=== PATIENT | male | born 1945 | race Caucasian/White ===

== ENCOUNTER 2016-07-22 09:51 | Outpatient (CLI) | payer MEDICARE ==
[2016-07-22 12:24] LABS: #Basophils 0.1 thou/uL (0.0-0.2); #Eosinphils 0.1 thou/uL (0.0-0.7); #Lymphocytes 1.1 thou/uL (1.20-3.40); #Monocytes 0.8 thou/uL (0.11-0.59); #Neutrophils 3.4 thou/uL (1.40-6.50); %Basophils 1.8 % (0.0-1.0); %Eosinophils 2.5 % (0.0-10.0); %Lymphocytes 19.6 % (21.0-51.0); %Monocytes 14.8 % (0.0-10.0); Hematocrit 39.2 % (42.0-52.0); Mean Platelet Volume 5.7 fL (7.4-10.4); Red Blood Cell (RBC) Count 4.02 mill/uL (4.70-6.10); White Blood Cell (WBC) Count 5.5 thou/uL (4.8-10.8)
[2016-07-22 12:53] LABS: ALT (SGPT) 16 U/L (0-55); AST (SGOT) 19 U/L (5-34); Alkaline Phosphatase 54 U/L (40-150); Anion Gap 14 mmol/L (10-20); BUN (Urea Nitrogen) 9 mg/dL (8.4-25.7); Bilirubin, Direct 0.2 mg/dL (0.1-0.3); Bilirubin, Total 0.4 mg/dL (0.2-1.2); Calc. Creatinine Clearance 0 mL/min (70-130); Calcium 8.7 mg/dL (7.8-10.44); Carbon Dioxide 24 mmol/L (23-31); Chloride 109 mmol/L (98-107); Estimated GFR-MDRD 83; LDL Cholesterol, Calculated 22 mg/dL; Protein, Total 6.7 g/dL (5.8-8.1)
[2016-07-22 14:43] LABS: Hemoglobin A1c 6.9 % (4.0-6.0)
== END 2016-07-22 09:52 | disposition home or self-care (01) ==
LOC: NAVSJIPCSP 09:51
PROVIDERS: ATTEND Family Medicine
DX: E03.9 Hypothyroidism, unspecified (principal); E11.9 Type 2 diabetes mellitus without complications; I10 Essential (primary) hypertension; Z79.899 Other long term (current) drug therapy
CPT/HCPCS: 36415; 80048; 80061; 80076; 83036; 84443; 85025

== ENCOUNTER 2016-08-25 04:55 | Emergency (ER) | payer MEDICARE ==
[2016-08-25 05:34] LABS: #Basophils 0.1 thou/uL (0.0-0.2); #Eosinphils 0.2 thou/uL (0.0-0.7); #Lymphocytes 0.9 thou/uL (1.20-3.40); #Monocytes 0.8 thou/uL (0.11-0.59); #Neutrophils 3.1 thou/uL (1.40-6.50); %Basophils 2.5 % (0.0-1.0); %Eosinophils 3.3 % (0.0-10.0); %Lymphocytes 18.3 % (21.0-51.0); %Monocytes 14.7 % (0.0-10.0); Hematocrit 37.5 % (42.0-52.0); Mean Platelet Volume 5.9 fL (7.4-10.4); Red Blood Cell (RBC) Count 4.01 mill/uL (4.70-6.10); White Blood Cell (WBC) Count 5.1 thou/uL (4.8-10.8)
[2016-08-25 05:46] LABS: ALT (SGPT) 18 U/L (0-55); AST (SGOT) 29 U/L (5-34); Alkaline Phosphatase 53 U/L (40-150); Anion Gap 14 mmol/L (10-20); BUN (Urea Nitrogen) 13 mg/dL (8.4-25.7); Bilirubin, Total 0.3 mg/dL (0.2-1.2); CK (CPK) 99 U/L (30-200); Calc. Creatinine Clearance 0 mL/min (70-130); Calcium 8.9 mg/dL (7.8-10.44); Carbon Dioxide 24 mmol/L (23-31); Chloride 108 mmol/L (98-107); Estimated GFR-MDRD 80; Lipase 22 U/L (8-78); Protein, Total 6.9 g/dL (5.8-8.1)
[2016-08-25 05:47] LABS: Troponin I Less than 0.010 ng/mL (< 0.028)
--- NOTE | 2016-08-25 09:39 | RAD ---
FRONTAL VIEW CHEST: Date: 08/25/16 COMPARISON: 09/12/15. CLINICAL HISTORY: New onset chest pain. FINDINGS: There remains enlargement of the cardiac silhouette. No new consolidation, effusion, or pneumothorax . Mild prominence of the pulmonary vasculature with interstitial prominence present bilaterally. IMPRESSION: 1. Stable chest. 2. Findings which suggest a mild component of fluid overload. Correlate clinically. POS: [facility]
[2016-08-25 11:36] LABS: Troponin I Less than 0.010 ng/mL (< 0.028)
== END 2016-08-25 13:50 | disposition short-term general hospital (02) ==
LOC: NAV ERS 04:55
DX: R07.2 Precordial pain (principal); Z79.899 Other long term (current) drug therapy; E11.9 Type 2 diabetes mellitus without complications; Z87.891 Personal history of nicotine dependence
CPT/HCPCS: 71010; 80053; 82553; 83690; 84484; 85025; 93005; 94760

== ENCOUNTER 2016-11-19 09:21 | Outpatient (CLI) | payer MEDICARE ==
[2016-11-19 14:26] LABS: ALT (SGPT) 15 U/L (8-55); AST (SGOT) 20 U/L (5-34); Alkaline Phosphatase 46 U/L (40-150); Anion Gap 17 mmol/L (10-20); BUN (Urea Nitrogen) 18 mg/dL (8.4-25.7); Bilirubin, Direct 0.2 mg/dL (0.1-0.3); Bilirubin, Total 0.4 mg/dL (0.2-1.2); Calc. Creatinine Clearance 0 mL/min (70-130); Calcium 9.3 mg/dL (7.8-10.44); Carbon Dioxide 26 mmol/L (23-31); Cardiac Risk 3.1 (Less than 4.5); Chloride 106 mmol/L (98-107); Cholesterol 86 mg/dL (< 200 Desired); Estimated GFR-MDRD 72; Glucose 60 mg/dL (80-115); HDL Cholesterol 28 mg/dL (>60 Neg Risk); LDL Cholesterol, Calculated 29 mg/dL; Potassium 5.2 mmol/L (3.5-5.1); Protein, Total 6.4 g/dL (5.8-8.1); Sodium 144 mmol/L (136-145); Triglycerides 146 mg/dL (Less than 150)
[2016-11-19 14:35] LABS: Anisocytosis SLIGHT = 6-15 cells (100X) (0-5/hpf); Eosinophils 1 % (0-10); Hemoglobin 11.7 g/dL (14.0-18.0); Lymphocytes 29 % (21-51); MDiff Complete? YES; Mean Corpuscular HGB CONC 31.9 g/dL (32.0-36.0); Mean Corpuscular Hemoglobin 30.1 pg (27.0-31.0); Mean Corpuscular Volume 94.2 fl (80.0-94.0); Mean Platelet Volume 5.4 fL (7.4-10.4); Monocytes 15 % (0-10); Neutrophil 55 % (42-75); PLT Morphology Comment Appears Increased; Platelet Count 617 thou/uL (130-400); RBC Distribution Width 13.8 % (11.5-14.5); Red Blood Cell (RBC) Count 3.88 mill/uL (4.70-6.10); White Blood Cell (WBC) Count 5.7 thou/uL (4.8-10.8)
[2016-11-19 14:45] LABS: Hemoglobin A1c 6.8 % (4.0-6.0)
== END 2016-11-19 09:22 | disposition home or self-care (01) ==
LOC: NAVSJIPCSP 09:21
PROVIDERS: ATTEND Family Medicine
DX: E03.9 Hypothyroidism, unspecified (principal); J30.9 Allergic rhinitis, unspecified; I10 Essential (primary) hypertension; K21.9 Gastro-esophageal reflux disease without esophagitis; E11.9 Type 2 diabetes mellitus without complications; Z79.899 Other long term (current) drug therapy
CPT/HCPCS: 36415; 80048; 80061; 80076; 83036; 84443; 85025

== ENCOUNTER 2017-03-25 09:06 | Outpatient (CLI) | payer MEDICARE ==
[2017-03-25 11:55] LABS: #Basophils 0.2 thou/uL (0.0-0.2); #Eosinphils 0.1 thou/uL (0.0-0.7); #Neutrophils 4.2 thou/uL (1.40-6.50); %Basophils 2.4 % (0.0-1.0); %Eosinophils 2.2 % (0.0-10.0); %Monocytes 14.7 % (0.0-10.0); %Neutrophils 64.7 % (42.0-75.0); Hemoglobin 11.2 g/dL (14.0-18.0); Mean Corpuscular HGB CONC 31.8 g/dL (32.0-36.0); Mean Corpuscular Hemoglobin 29.2 pg (27.0-31.0); Mean Corpuscular Volume 92.1 fl (80.0-94.0); Mean Platelet Volume 5.6 fL (7.4-10.4); Platelet Count 712 thou/uL (130-400); RBC Distribution Width 15.1 % (11.5-14.5); Red Blood Cell (RBC) Count 3.82 mill/uL (4.70-6.10); White Blood Cell (WBC) Count 6.5 thou/uL (4.8-10.8)
[2017-03-25 12:28] LABS: ALT (SGPT) 15 U/L (8-55); AST (SGOT) 20 U/L (5-34); Alkaline Phosphatase 50 U/L (40-150); Anion Gap 15 mmol/L (10-20); BUN (Urea Nitrogen) 14 mg/dL (8.4-25.7); Bilirubin, Direct 0.2 mg/dL (0.1-0.3); Bilirubin, Total 0.3 mg/dL (0.2-1.2); Calc. Creatinine Clearance 0 mL/min (70-130); Calcium 9.3 mg/dL (7.8-10.44); Carbon Dioxide 26 mmol/L (23-31); Cardiac Risk 2.6 (Less than 4.5); Chloride 108 mmol/L (98-107); Cholesterol 75 mg/dl (< 200 Desired); Estimated GFR-MDRD 74; Glucose 73 mg/dL (80-115); HDL Cholesterol 29 mg/dL (>60 Neg Risk); LDL Cholesterol, Calculated 26 mg/dL; Potassium 5.1 mmol/L (3.5-5.1); Protein, Total 6.7 g/dL (5.8-8.1); Sodium 144 mmol/L (136-145); Triglycerides 99 mg/dL (Less than 150)
[2017-03-25 12:30] LABS: Hemoglobin A1c 6.8 % (4.0-6.0)
== END 2017-03-25 09:07 | disposition home or self-care (01) ==
LOC: NAVSJIPCSP 09:06
PROVIDERS: ATTEND Family Medicine
DX: E03.9 Hypothyroidism, unspecified (principal); I10 Essential (primary) hypertension; E11.9 Type 2 diabetes mellitus without complications; D64.9 Anemia, unspecified; K21.9 Gastro-esophageal reflux disease without esophagitis; Z79.899 Other long term (current) drug therapy
CPT/HCPCS: 36415; 80048; 80061; 80076; 83036; 84443; 85025

== ENCOUNTER 2018-07-22 11:28 | Outpatient (CLI) | payer MEDICARE ==
--- NOTE | 2018-07-22 13:41 | RAD ---
TWO VIEWS RIGHT HIP: Comparison: None. History: right hip pain for one month. FINDINGS: Two views of the right hip shows no evidence of acute fracture or dislocation. No degenerative change s are seen. No soft tissue swelling is seen. IMPRESSION: Unremarkable exam. POS: [facility]
== END 2018-07-22 11:29 | disposition home or self-care (01) ==
LOC: NAV RAD 11:28
PROVIDERS: ATTEND Family Medicine
DX: M25.551 Pain in right hip (principal)

== ENCOUNTER 2018-12-06 17:35 | Emergency (ER) | payer MEDICARE ==
[2018-12-06] MEDS ORDERED: Sulfameth/Trimethoprim DS 800-160mg TAB ONE (17:57)
== END 2018-12-06 18:02 | disposition home or self-care (01) ==
LOC: NAV ERS 17:35
DX: S60.512A Abrasion of left hand, initial encounter (principal); L03.114 Cellulitis of left upper limb; I25.10 Atherosclerotic heart disease of native coronary artery without angina pectoris; E11.9 Type 2 diabetes mellitus without complications; E03.9 Hypothyroidism, unspecified; I10 Essential (primary) hypertension; Z87.891 Personal history of nicotine dependence; Z79.899 Other long term (current) drug therapy; Z79.82 Long term (current) use of aspirin; Z79.84 Long term (current) use of oral hypoglycemic drugs
CPT/HCPCS: 99283

== ENCOUNTER 2020-04-12 10:02 | Outpatient (CLI) | payer MEDICARE ==
--- NOTE | 2020-04-12 10:25 | RAD ---
XR Chest Pa Lat STANDARD History: Shortness of breath Comparison: Radiograph 2015 and 2017 Findings: Heart size is enlarged. Moderate pulmonary venous congestion and developing pulmonary edema . Small effusions. No pneumothorax. No acute displaced rib fracture. Pulmonary arteries are dilated. Moderate calcifications transverse aorta. Impression: Findings of moderate decompensated congestive heart failure. Follow-up after diuresis rec ommended.
== END 2020-04-12 10:03 | disposition home or self-care (01) ==
LOC: NAV RAD 10:02
PROVIDERS: ATTEND Family Medicine
DX: S29.9XXA Unspecified injury of thorax, initial encounter (principal); R06.02 Shortness of breath; I50.9 Heart failure, unspecified; R35.8 Other polyuria
CPT/HCPCS: 71046

== ENCOUNTER 2021-11-08 11:06 | Outpatient (CLI) | payer MEDICARE | END 2021-11-08 11:07 | disposition home or self-care (01) | LOC: NAV RAD 11:06 | PROVIDERS: ATTEND Nurse Practitioner Family | DX: R10.84 Generalized abdominal pain (principal) | CPT/HCPCS: 74018 ==

== ENCOUNTER 2022-09-17 03:24 | Emergency (ER) | payer MEDICARE ==
[2022-09-17] MEDS ORDERED: Aspirin Chewable 81 MG TAB ONE (03:54)
[2022-09-17 04:03] LABS: Hemoglobin 10.6 g/dL (14.0-18.0); Manual Diff?? NO; Mean Corpuscular HGB CONC 32.5 g/dL (32.0-36.0); Mean Corpuscular Hemoglobin 30.2 pg (27.0-31.0); Mean Corpuscular Volume 963.1 fl (78.0-98.0); Mean Platelet Volume 7.2 fL (7.4-10.4); Platelet Count 311 10x3/uL (130-400); RBC Distribution Width 15.6 % (11.5-14.5); Red Blood Cell (RBC) Count 3.49 mill/uL (4.70-6.10); White Blood Cell (WBC) Count 11.3 10x3/uL (4.8-10.8)
[2022-09-17 04:04] LABS: #Basophils 0.5 thou/uL (0.0-0.2); #Eosinphils 0.1 thou/uL (0.0-0.7); #Lymphocytes 1.4 thou/uL (1.20-3.40); #Monocytes 0.9 thou/uL (0.11-0.59); #Neutrophils 8.5 thou/uL (1.40-6.50); %Basophils 4.1 % (0.0-1.0); %Lymphocytes 11.9 % (21.0-51.0); %Monocytes 7.6 % (0.0-10.0); %Neutrophils 75.4 % (42.0-75.0)
[2022-09-17 04:10] LABS: Carbon Dioxide 24 mmol/L (23-31)
[2022-09-17 04:13] LABS: ALT (SGPT) 21 U/L (8-55); AST (SGOT) 31 U/L (5-34); Albumin 3.7 g/dL (3.4-4.8); Alkaline Phosphatase 84 U/L (40-110); Anion Gap 12 mmol/L (10-20); BUN (Urea Nitrogen) 20 mg/dL (8.4-25.7); Bilirubin, Total 0.4 mg/dL (0.2-1.2); Calc. Creatinine Clearance 0 mL/min (70-130); Calcium 8.8 mg/dL (7.8-10.44); Chloride 109 mmol/L (98-107); Estimated GFR 66; Glucose 129 mg/dL (83-110); Lipase 25 U/L (8-78); Potassium 3.8 mmol/L (3.5-5.1); Protein, Total 5.7 g/dL (5.8-8.1); Sodium 141 mmol/L (136-145)
[2022-09-17] MEDS ORDERED: Nitroglycerin 2% Ointment 1 INCH/1 GM Packet ONE (04:41)
[2022-09-17 07:57] LABS: Troponin I Less than 0.010 ng/mL (< 0.028)
[2022-09-17] MEDS ORDERED: Acetaminophen 325 MG TAB PO PRN (12:30)
[2022-09-17] MEDS ORDERED: Ondansetron ODT 4 MG TAB SL PRN (12:30)
[2022-09-17] MEDS ORDERED: Ondansetron PF 4 MG/2 ML Vial IVP PRN (12:30)
== END 2022-09-17 10:47 | disposition short-term general hospital (02) ==
LOC: NAV ERS 03:24
DX: R07.89 Other chest pain (principal); D64.9 Anemia, unspecified; D72.829 Elevated white blood cell count, unspecified; I25.10 Atherosclerotic heart disease of native coronary artery without angina pectoris; I25.2 Old myocardial infarction; E03.9 Hypothyroidism, unspecified; E11.9 Type 2 diabetes mellitus without complications; I10 Essential (primary) hypertension; Z87.891 Personal history of nicotine dependence; Z95.5 Presence of coronary angioplasty implant and graft; Z79.82 Long term (current) use of aspirin; Z79.84 Long term (current) use of oral hypoglycemic drugs; Z79.899 Other long term (current) drug therapy
CPT/HCPCS: 71045; 80053; 83690; 84484; 85025; 93005

== ENCOUNTER 2023-06-23 12:26 | Emergency (ER) | payer MEDICARE | END 2023-06-23 13:15 | disposition home or self-care (01) | LOC: NAV ERS 12:26 | DX: L03.011 Cellulitis of right finger (principal); I25.10 Atherosclerotic heart disease of native coronary artery without angina pectoris; E11.9 Type 2 diabetes mellitus without complications; E03.9 Hypothyroidism, unspecified; Z87.891 Personal history of nicotine dependence; Z79.82 Long term (current) use of aspirin; Z79.899 Other long term (current) drug therapy ==